=== PATIENT | female | born 1995 | race Caucasian/White ===

== ENCOUNTER 2016-10-19 23:35 | Emergency (ER) | payer OTHER ==
[2016-10-19 23:40] VITALS: RESP 16; TEMP 97.3
[2016-10-20] MEDS ORDERED: ACETAMINOPHEN 500 MG TAB PO ONE (00:55)
--- NOTE | 2016-10-20 01:48 | EDPHY ---
H & P Stated Complaint: URI and FLETCHER Time Seen by Provider: 10/20/16 00:45 HPI/ROS: HPI The patient presents with URI type symptoms for the last several days. She has recently returned from a camping trip in [place]. She has had a cough, runny nose, sore throat. Her symptoms have been moderate in severity and fairly constant. She denies any sick contacts. She also has a frontal throbbing left-sided headache. She has been taking anti-inflammatory medications with some improvement in her symptoms. She reports subjective fever.. REVIEW OF SYSTEMS Constitutional: Subjective fever Eyes: No discharge. ENT: Positive for sore throat. Cardiovascular: No chest pain, no palpitations. Respiratory: Positive for cough, no shortness of breath. Gastrointestinal: No abdominal pain, no vomiting. Genitourinary: No hematuria. Musculoskeletal: No back pain. Skin: No rashes. Neurological: No headache. PMHx: Anxiety, prior kidney stone with stent placement Soc Hx: College student PHYSICAL General Appearance: Alert, no distress Eyes: Pupils equal and round no pallor or injection ENT, Mouth: Mucous membranes moist Respiratory: There are no retractions, lungs are clear to auscultation Cardiovascular: Regular rate and rhythm Gastrointestinal: Abdomen is soft and non-tender, no masses, bowel sounds normal Neurological: A&O, moves all extremities Skin: Warm and dry, no rashes Musculoskeletal: Neck is supple non tender Extremities: symmetrical, full range of motion Psychiatric: Patient is oriented X 3, there is no agitation Source: Patient Exam Limitations: No limitations - Personal History LMP (Females 10-55): 1-7 Days Ago Current Tetanus/Diphtheria Vaccine: Yes Current Tetanus Diphtheria and Acellular Pertussis (TDAP): Yes Tetanus Vaccine Date: < 10 years - Medical/Surgical History Hx Asthma: No Hx Chronic Respiratory Disease: No Hx Diabetes: No Hx Cardiac Disease: No Hx Renal Disease: No Hx Cirrhosis: No Hx Alcoholism: No Hx HIV/AIDS: No Hx Splenectomy or Spleen Trauma: No Other PMH: medical - anxiety, PTSD, kidney stone, ureteral stent placement, ovarian cysts. surgery - teeth extraction - Social History Smoking Status: Light smoker Constitutional: Initial Vital Signs Temperature (C) 36.3 C 10/19/16 23:38 Heart Rate 75 10/19/16 23:38 Respiratory Rate 16 04/02/17 23:38 Blood Pressure 100/79 04/02/17 23:38 O2 Sat (%) 95 10/19/16 23:38 O2 Delivery Mode Room Air Allergies/Adverse Reactions: moxifloxacin HCl [From Avelox] Allergy (Intermediate, Verified 10/19/16 23:40) Rash Home Medications: Medication Instructions Recorded Hydromorphone HCl 01/14/16 Medical Decision Making Differential Diagnosis: This is a 21-year-old female with no significant past medical history who presents from home with URI type symptoms with associated headache. On exam, she is quite well appearing, has normal vital signs, and has a nonfocal exam. Differential diagnosis includes influenza, viral URI, migraine headache. In the emergency room, the patient was given Tylenol for her symptoms. Rapid flu was done and was negative. I feel she likely has a viral URI and discussed this with her. I plan to discharge her from the emergency room. - Data Points Medications Given: Discontinued Medications Acetaminophen (Tylenol) 1,000 mg PO EDNOW ONE Stop: 10/20/16 00:56 Last Admin: 10/20/16 01:15 Dose: 1,000 mg Departure - Departure Disposition: Home, Routine, Self-Care Clinical Impression: URI (upper respiratory infection) Condition: Good Instructions: Upper Respiratory Infection (ED) Additional Instructions: Please make sure to drink plenty of fluids. You can take ibuprofen 400 mg with Tylenol 1 g every 6 hours as needed for your symptoms. You should be better within the next few days. Referrals: [facility] [Outside] - As per Instructions
[2016-10-20 02:03] VITALS: BP 123/88; PULSE 68; O2SAT 96
== END 2016-10-20 02:02 | disposition home or self-care (01) ==
DX: J06.9 Acute upper respiratory infection, unspecified (principal); F17.200 Nicotine dependence, unspecified, uncomplicated

== ENCOUNTER → 2017-05-08 | Outpatient (CLI) | payer OTHER | LOC: BMCIMAGING 11:49 | PROVIDERS: ATTEND Family Medicine | DX: M79.632 Pain in left forearm (principal) ==

== ENCOUNTER 2017-07-06 01:47 | Emergency (ER) | payer OTHER ==
[2017-07-06 01:57] VITALS: BP 111/74; PULSE 81; RESP 16; TEMP 97.5; O2SAT 96
--- NOTE | 2017-07-06 03:37 | EDPHY ---
H & P Stated Complaint: R fingers and hand going numb - Broken/splinted arm 07/05 Time Seen by Provider: 07/06/17 01:58 HPI/ROS: HPI The patient presents with right finger numbness and swelling with pain which has been present for the last several hours. She sustained a Colles fracture with ulnar styloid fracture yesterday while snowboarding and falling onto an outstretched arm. She was seen and was placed in a sugar-tong splint. Over the course of the day she has had increasing pain and swelling of her hand. She says some of her fingers feel slightly cool. She has no skin changes.. REVIEW OF SYSTEMS Constitutional: No fever, no chills. Musculoskeletal: No back pain. Skin: No rashes. Neurological: No headache. PMHx: Healthy PHYSICAL General Appearance: Alert, no distress Eyes: Pupils equal and round no pallor or injection ENT, Mouth: Mucous membranes moist Respiratory: Breathing comfortably Neurological: A&O, moves all extremities Skin: Warm and dry, no rashes Musculoskeletal: Right arm is in a sugar-tong splint, splint is removed, fingers are edematous and have brisk capillary refill, they are warm, there is sensation intact to light touch, there is mild edema throughout her forearm and wrist Extremities: symmetrical, full range of motion Psychiatric: Patient is oriented X 3, there is no agitation Source: Patient Exam Limitations: No limitations - Personal History LMP (Females 10-55): 1-7 Days Ago Current Tetanus/Diphtheria Vaccine: Unsure Current Tetanus Diphtheria and Acellular Pertussis (TDAP): Unsure Tetanus Vaccine Date: < 10 years - Medical/Surgical History Hx Asthma: No Hx Chronic Respiratory Disease: No Hx Diabetes: No Hx Cardiac Disease: No Hx Renal Disease: No Hx Cirrhosis: No Hx Alcoholism: No Hx HIV/AIDS: No Hx Splenectomy or Spleen Trauma: No Other PMH: medical - anxiety, PTSD, kidney stone, ureteral stent placement, ovarian cysts. surgery - teeth extraction - Social History Smoking Status: Light smoker Constitutional: Initial Vital Signs Temperature (C) 36.4 C 07/06/17 01:52 Heart Rate 81 07/06/17 01:52 Respiratory Rate 16 07/06/17 01:52 Blood Pressure 111/74 07/06/17 01:52 O2 Sat (%) 96 07/06/17 01:52 O2 Delivery Mode Room Air Allergies/Adverse Reactions: moxifloxacin HCl [From Avelox] Allergy (Intermediate, Verified 10/19/16 23:40) Rash Home Medications: Medication Instructions Recorded Hydromorphone HCl 01/14/16 Medical Decision Making Differential Diagnosis: 22-year-old female who sustained Colles fracture with ulnar styloid fracture yesterday, splinted in sugar-tong splint now presents with edema, pain and paresthesias to her hand. On exam, her hand is warm, there is brisk cap refill , sensation is intact to light touch. The emergency department, we removed the Nathan wrap that was surrounding the splint. This improved her pain significantly. Her extremity shows no signs of compartment syndrome. We then rewrapped her splint more loosely. She has plans to follow up with Orthopedics later today. For now, I have recommended that she continue to use ice and anti-inflammatory pain medications. She return if her symptoms return. Departure - Departure Disposition: Home, Routine, Self-Care Clinical Impression: Hand swelling Colles' fracture Qualifiers: Encounter type: initial encounter Fracture type: closed Laterality: right Qualified Code(s): S52.531A - Colles' fracture of right radius, initial encounter for closed fracture Condition: Good Instructions: Splint Care (ED) Additional Instructions: Please follow-up with your orthopedist tomorrow as planned. You should return to the emergency department if your worse in any way.
== END 2017-07-06 03:39 | disposition home or self-care (01) ==
DX: S52.531A Colles' fracture of right radius, initial encounter for closed fracture (principal); F17.200 Nicotine dependence, unspecified, uncomplicated; V00.311A Fall from snowboard, initial encounter; Y99.8 Other external cause status; Y93.23 Activity, snow (alpine) (downhill) skiing, snowboarding, sledding, tobogganing and snow tubing

== ENCOUNTER → 2017-12-17 | Outpatient (CLI) | payer OTHER | LOC: BMCIMAGING 16:32 | PROVIDERS: ATTEND Family Medicine | DX: M79.672 Pain in left foot (principal) ==

== ENCOUNTER → 2018-07-16 | Outpatient (CLI) | payer OTHER | LOC: BMCIMAGING 11:06 | PROVIDERS: ATTEND Emergency Medicine | DX: M79.645 Pain in left finger(s) (principal) ==